=== PATIENT | female | born 1965 | race Caucasian/White ===

== ENCOUNTER 2017-07-08 20:51 | Emergency (ER) | payer OTHER ==
--- NOTE | 2017-07-08 21:05 | PDOC ---
History of Present Illness - History of Present Illness Initial Comments: 07/08/17 21:47 Patient is a 52 year old female with no significant past medical history who presents to the ED with complaints of left arm pain that began tonight at 8: 30pm. Patient reports walking her dog when she began feeling a sudden onset of left arm pain that began to radiate up to her left shoulder. She reports never experiencing anything similar to this pain. Patient described left arm pain to be localized to inner her arm and states her arm feels "heavy". She reports being home sick from work for last 2 days but is unsure if the two are related. Patient states she has been experiencing SOB but states it is due to her cold. Denies unusual physical activity. Denies chest pain. Denies fever, chills. Denies any other symptoms. Allergies: None Social history: Single mother with 2 teenage children. No smoking. No alcohol. No illicit drugs. Fam Hx; father heart attack age 42. Surgical history: None PMD: Dr. Arce Adult ROS General: No fevers or chills, no weakness, no weight loss HEENT: No change in vision. No sore throat, No ear pain CardioVascular: No chest pain or shortness of breath Respiratory:No cough, or wheezing. Gastrointestinal: no nausea, vomiting, diarrhea or constipation, No rectal bleeding Genitourinary: No dysuria, hematuria, or frequency Musculoskeletal: +Left arm pain. +Left shoulder pain. No joint or muscle swelling Neurologic: No headache, vertigo, dizziness or loss of consciousness Psychiatric: nor depression Skin: No rashes or easy bruising Endocrine: no increased thirst or abnormal weight change Allergic: no skin or latex allergy All other systems reviewed and normal Adult PE General: Well-nourished well-developed individual, no acute distress HEENT: Throat: Normal, tonsils normal, no erythema or exudate Neck: Supple, no meningeal signs, no lymphadenopathy Eyes::Pupils equal reactive and round, extraocular motion intact Chest: Nontender to palpation Cardiac: S1-S2 normal, regular rate and rhythm, no murmurs rubs or gallops Respiratory: Lungs clear to auscultation bilateral Extremities: Warm, dry, no cyanosis, clubbing, or edema Skin: No rashes Neuro: Alert and oriented x3, nonfocal exam, grossly intact, normal gait Psych: Normal mood and affect <Quirino Escamilla Last Filed: 07/08/17 21:48> - General History Source: Patient Exam Limitations: No Limitations - History of Present Illness Initial Comments: Medical decision making: This is a 52-year-old female who comes in complaining of left arm pain. Patient has virtually no risk factors for cardiac disease however she does have one risk factor which is a strong family history. Patient otherwise denies any hypertension, high cholesterol, smoking or diabetes. Will obtain EKG and cardiac labs. A portion of this note was documented by scribe services under my direction. I have reviewed the details of the note, within reason, and agree with the documentation. The case summary and management plan written by me. 07/08/17 22:12 Patient's heart scores 3 Assessment and plan: This is a 52-year-old female who comes in complaining of left arm pain primarily the out side of her arm radiating up into her shoulder. Patient said pain began post walking the dog. Patient denied any associated symptoms Patient's EKG just shows some nonspecific ST abnormalities Patient's troponin was negative Patient discharged and told to follow-up with her primary care doctor for further evaluation as she does have a strong family history of coronary artery disease. <Queta Pulido I - Last Filed: 07/08/17 22:29> - General Chief Complaint: Pain Stated Complaint: LT SHOULDER DISCOMFORT Time Seen by Provider: 07/08/17 20:55 Past History <Quirino Escamilla - Last Filed: 07/08/17 21:48> - Past Medical History Anemia: No Asthma: No Cancer: No Cardiac Disorders: No CVA: No COPD: No CHF: No Dementia: No Diabetes: No GI Disorders: Yes (CROHN'S COLITIS) Disorders: No HTN: No Hypercholesterolemia: No Liver Disease: No Seizures: No Thyroid Disease: No - Surgical History Abdominal Surgery: No Appendectomy: No Cardiac Surgery: No Cholecystectomy: No Lung Surgery: No Neurologic Surgery: No Orthopedic Surgery: Yes (BILATERAL HIP REPLACEMENTS 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 HIP DYSPLASIA) - Suicide/Smoking/Psychosocial Hx Smoking History: Never smoked Have you smoked in the past 12 months: No Number of Cigarettes Smoked Daily: 0 If you are a former smoker, when did you quit?: 1997 Hx Alcohol Use: Yes Drug/Substance Use Hx: No Substance Use Type: Alcohol Hx Substance Use Treatment: No <Queta Pulido I - Last Filed: 07/08/17 22:29> - Past Medical History Allergies/Adverse Reactions: Allergies Allergy/AdvReac Type Severity Reaction Status Date / Time No Known Drug Allergies Allergy Unverified 06/30/14 13:00 Home Medications: Ambulatory Orders NK [No Known Home Medication] 07/08/17 *Physical Exam - Vital Signs Last Vital Signs Temp Pulse Resp BP Pulse Ox 98.5 F 86 16 137/87 98 07/08/17 20:55 07/08/17 20:55 07/08/17 20:55 07/08/17 20:55 07/08/17 20:55 <Quirino Escamilla - Last Filed: 07/08/17 21:48> - Vital Signs Last Vital Signs Temp Pulse Resp BP Pulse Ox 98.5 F 86 16 137/87 98 07/08/17 20:55 07/08/17 20:55 07/08/17 20:55 07/08/17 20:55 07/08/17 20:55 <Queta Pulido I - Last Filed: 07/08/17 22:29> Heart Score/ECG Review - ECG Intrepretation Comment:: 07/08/17 21:33 Normal sinus Rhythm. Nonspecific ST abnormality Abnormal ECG <Quirino Escamilla - Last Filed: 07/08/17 21:48> - History History: Slightly suspicious - Electrocardiogram EKG: Non specific repolarization disturbance - Age Age: 45-65 - Risk Factors Risk Factors Heart Score: Yes Positive family hx of cardiac disease Based on the list above the patient has:: 1-2 risk factors - Troponin Troponin: </= normal limit - Score Heart Score - Total: 3 <Queta Pulido I - Last Filed: 07/08/17 22:29> *DC/Admit/Observation/Transfer - Attestations Scribe Attestion: 07/08/17 21:34 Documentation prepared by Quirino Escamilla, acting as medical insurance coder for Queta Pulido MD/DO. <Quirino Escamilla - Last Filed: 07/08/17 21:48> - Discharge Dispostion Admit: No <Queta Pulido I - Last Filed: 07/08/17 22:29> Diagnosis at time of Disposition: Left upper arm pain - Discharge Dispostion Disposition: HOME Condition at time of disposition: Stable - Referrals Referrals: Russell Arce MD [Primary Care Provider] - - Patient Instructions Additional Instructions: Return to the emergency department immediately with ANY new, persistent or worsening symptoms. Continue any medications as previously prescribed by your physician. You should follow up with your primary doctor as soon as possible regarding today's emergency department visit. When you see your primary care doctor asked for a referral to a tow truck driver for further evaluation and workup to furthur rule out coronary artery disease. . Please make sure your doctor reviews the results of your emergency evaluation. Thank you for coming to the Emergency Department today for your care. It was a pleasure to see you today. Please note that your evaluation is INCOMPLETE until you follow-up with your doctor. - Post Discharge Activity
[2017-07-08 21:07] VITALS: BP 137/87; PULSE 86; TEMP 98.5; BMI 30.4
[2017-07-08 22:00] LABS: CPK 107 IU/L (26-192)
[2017-07-08 22:19] LABS: TROPONIN I (DFP) < 0.03 ng/ml (0.03-0.50)
--- NOTE | 2017-07-10 08:30 | EKG ---
Test Reason : Blood Pressure : / mmHG Vent. Rate : 080 BPM Atrial Rate : 080 BPM P-R Int : 134 ms QRS Dur : 102 ms QT Int : 388 ms P-R-T Axes : 074 059 005 degrees QTc Int : 447 ms NORMAL SINUS RHYTHM NO PREVIOUS ECGS AVAILABLE Confirmed by SANJU LANZA MD ([id number]) on 07/10/2017 8:30:22 AM Referred By: MADISYN Confirmed By:SANJU LANZA MD
== END 2017-07-08 23:13 | disposition home or self-care (01) ==
LOC: FER 20:51
DX: M79.602 Pain in left arm (principal); K50.90 Crohn's disease, unspecified, without complications; Z96.643 Presence of artificial hip joint, bilateral; Z87.891 Personal history of nicotine dependence
CPT/HCPCS: 36415; 82550; 84484; 93005; 99282-25

== ENCOUNTER 2018-04-13 07:39 | Emergency (ER) | payer OTHER ==
--- NOTE | 2018-04-13 07:42 | PDOC ---
History of Present Illness - General Chief Complaint: Chest Pain Stated Complaint: SHORT OF BREAT LEFT CHEST WALL PAIN Time Seen by Provider: 04/13/18 07:41 - History of Present Illness Initial Comments: 04/13/18 09:51 53 is all no significant past medical history presents emergency Department with substernal chest pressure this morning. Patient had gone for a 45 minute walk there was no pain with exertion upon returning home while making coffee patient began to experience episode of substernal discomfort no radiation or diaphoresis no nausea no vomiting pain was worse with movement of her arm and it extinguished soon after. Recently over the past several months patient has experienced intermittent dyspnea not with exertion often at rest. She had a normal stress and stress thallium test within the last 3-4 years denies hypertension diabetes high cholesterol no tobacco positive family history. No travel no hemoptysis no leg swelling no active cancer no recent surgeries Past History - Past Medical History Allergies/Adverse Reactions: Allergies Allergy/AdvReac Type Severity Reaction Status Date / Time No Known Drug Allergies Allergy Verified 04/13/18 07:40 Home Medications: Ambulatory Orders NK [No Known Home Medication] 07/08/17 Anemia: No Asthma: No Cancer: No Cardiac Disorders: No CVA: No COPD: No CHF: No Dementia: No Diabetes: No GI Disorders: Yes (CROHN'S COLITIS) Disorders: No HTN: No Hypercholesterolemia: No Liver Disease: No Seizures: No Thyroid Disease: No - Surgical History Abdominal Surgery: No Appendectomy: No Cardiac Surgery: No Cholecystectomy: No Lung Surgery: No Neurologic Surgery: No Orthopedic Surgery: Yes (BILATERAL HIP REPLACEMENTS 2011 R/T HIP DYSPLASIA) - Suicide/Smoking/Psychosocial Hx Smoking History: Never smoked Have you smoked in the past 12 months: No Number of Cigarettes Smoked Daily: 0 If you are a former smoker, when did you quit?: 1997 Hx Alcohol Use: Yes Drug/Substance Use Hx: No Substance Use Type: Alcohol Hx Substance Use Treatment: No Review of Systems - Review of Systems Comments:: 04/13/18 08:12 ROS: A complete review of 10 out of 10 review of systems is taken and is negative apart from what is previously mentioned below and in the HPI. *Physical Exam - Physical Exam Comments: 04/13/18 09:49 Vitals: Triage Vital signs reviewed General Appearance: no acute distress, well nourished well developed, Head: Atraumatic, Eyes: Pupils equal reactive round, extraocular movement intact Ears: TM's normal bilaterally; Nose: Nares patent bilaterally;no nasal congestion Throat: Posterior oropharynx without erythema, mucous membranes moist, Neck: Supple;No Nucal rigidity Chest Wall: Nontender Cardiac: Regular rate and rhythym, no murmurs, no rubs, no gallops, Lungs: Clear to auscultation bilateral, good air movement bilaterally, Abdomen: Soft, non distended, normal bowel sounds, non tender to palpation Genitourinary: Rectal: Exam deferred Extremities: Full range of motion to all extremities, no cyanosis, clubbing, or edema Skin: Warm and dry, no rashes or lesions, no rash, no petechiae Neuro: AOX3; Cranial Nerves 2-12 grossly intact, Strength intact to all extremities, Sensation intact to all extremities,gait normal Psych: normal mood, normal affect Heart Score/ECG Review - History History: Slightly suspicious - Electrocardiogram EKG: Normal - Age Age: 45-65 - Risk Factors Risk Factors Heart Score: Yes Positive family hx of cardiac disease Based on the list above the patient has:: 1-2 risk factors - Troponin Troponin: </= normal limit - Score Heart Score - Total: 2 - ECG Impressions Comment:: 04/13/18 08:12 EKG performed at 8:05 AM demonstrates normal sinus rhythm 76 bpm. MI interval 132, QRS 90, QTC 425. No ST elevations no T-wave inversions no MI depressions no ST depressions. Normal axis. Interpreted by me. ED Treatment Course - LABORATORY CBC & Chemistry Diagram: 04/13/18 08:20 04/13/18 08:20 Medical Decision Making - Medical Decision Making 04/13/18 11:41 Heart score to atypical discomfort nonexertional no diaphoresis no nausea no vomiting no PE DVT risk factors low risk based on well's criteria Nonischemic EKG first troponin negative given that onset of symptoms was prior to arrival check second troponin and reassess. *DC/Admit/Observation/Transfer Diagnosis at time of Disposition: Atypical chest pain - Discharge Dispostion Disposition: HOME Condition at time of disposition: Stable Decision to Admit order: No - Referrals Referrals: Camilo Ramos MD [Staff Physician] - - Patient Instructions Printed Discharge Instructions: DI for Atypical Chest Pain Additional Instructions: Follow-up with Dr. Fader next week. Return to the emergency department for any severe worsening exertional symptoms or for any concerns. - Post Discharge Activity
[2018-04-13 08:08] VITALS: TEMP 98.1; BMI 36.0
[2018-04-13 08:36] LABS: EOS % 1.9 % (0-4.5); HEMATOCRIT 36.7 % (32.4-45.2); HEMOGLOBIN 12.3 GM/dl (10.7-15.3); LYMPH % 36.2 % (8-40); MCH 28.7 pg (25.7-33.7); MCHC 33.6 g/dl (32.0-36.0); MEAN CELL VOLUME 85.4 fl (80-96); MEAN PLT VOLUME 7.9 fl (7.5-11.1); MONO % 8.8 % (3.8-10.2); NEUT % 52.1 % (42.8-82.8); PLATELET COUNT 285 K/MM3 (134-434); RBC 4.29 M/mm3 (3.60-5.2); RDW 12.9 % (11.6-15.6); WHITE BLOOD COUNT 3.8 K/mm3 (4.0-10.8)
[2018-04-13 08:45] LABS: ALBUMIN 3.9 g/dl (3.5-5.0); ALK PHOS 70 U/L (32-92); ANION GAP 7 MMOL/L (8-16); BILIRUBIN,TOTAL 1.1 mg/dl (0.2-1.0); BLOOD UREA NITROGEN 20 mg/dl (7-18); CHLORIDE 104 mmol/L (98-107); CO2 25 mmol/L (22-28); CREATININE 0.7 mg/dl (0.6-1.3); GLUCOSE,RANDOM 99 mg/dl (74-106); SGOT/AST 31 U/L (10-42); SGPT/ALT 24 U/L (10-40); SODIUM 136 mmol/L (136-145); TOT PROT 7.1 g/dl (6.4-8.3)
--- NOTE | 2018-04-13 09:21 | EKG ---
Test Reason : Blood Pressure : / mmHG Vent. Rate : 076 BPM Atrial Rate : 076 BPM P-R Int : 132 ms QRS Dur : 090 ms QT Int : 378 ms P-R-T Axes : 055 043 021 degrees QTc Int : 425 ms NORMAL SINUS RHYTHM NORMAL ECG WHEN COMPARED WITH ECG OF 08-JUL-2017 21:13, NO SIGNIFICANT CHANGE WAS FOUND Confirmed by SHARON RICE MD ([id number]) on 04/13/2018 9:21:33 AM Referred By: Confirmed By:SHARON RICE MD
[2018-04-13 11:00] VITALS: BP 110/58; PULSE 65
== END 2018-04-13 11:50 | disposition home or self-care (01) ==
LOC: FER 07:39
DX: R07.89 Other chest pain (principal); Z96.643 Presence of artificial hip joint, bilateral
CPT/HCPCS: 36415; 71045-TC-FY; 80053; 84484; 85025; 93005; 99284-25

== ENCOUNTER 2019-07-29 19:03 | Emergency (ER) | payer OTHER ==
[2019-07-29 19:13] VITALS: BP 148/87; PULSE 82; TEMP 98; BMI 36.5
[2019-07-29] MEDS ORDERED: KETOROLAC TROMETHAMINE 60 MG/2 ML VIAL IM ONE (20:34)
[2019-07-29] MEDS ORDERED: KETOROLAC TROMETHAMINE 60 MG/2 ML VIAL ONE (20:50)
--- NOTE | 2019-07-29 22:43 | PDOC ---
Documentation entered by Myae Chang SCRIBE, acting as scribe for May Dominguez MD. May Dominguez MD: This documentation has been prepared by the Bernardo vsaquez Xhesika, SCRIBE, under my direction and personally reviewed by me in its entirety. I confirm that the documentation accurately reflects all work, treatment, procedures, and medical decision making performed by me. History of Present Illness - General Chief Complaint: Injury Stated Complaint: LEFT SHOULDER PAIN Time Seen by Provider: 07/29/19 19:21 History Source: Patient Exam Limitations: No Limitations - History of Present Illness Initial Comments: 07/29/19 19:59 The patient is a 54 year old female with no significant PMH of who presents to the emergency department for L shoulder pain s/p fall [employer]. The patient states she was putting her neighbors dog in the house, might've hit something with her foot and fell forward. The patient denies LOC or head injuries. Pt notes she had trouble getting up and had to roll over onto her R side. Patient denies taking any pain medications. Pt denies any lower extremity pain at rest or with ambulation. The patient denies chest pain, shortness of breath, headache and dizziness. Denies fever, chills, cough, nausea, vomiting, diarrhea and constipation. Denies dysuria, frequency, urgency and hematuria. Allergies: NKDA Past surgical history: b/l hip replacements Past History - Past Medical History Allergies/Adverse Reactions: Allergies Allergy/AdvReac Type Severity Reaction Status Date / Time No Known Drug Allergies Allergy Verified 07/29/19 19:05 Home Medications: Ambulatory Orders Diclofenac Sodium [Voltaren -] 75 mg PO BID PRN #20 tablet. 07/29/19 Anemia: No Asthma: No Cancer: No Cardiac Disorders: No CVA: No COPD: No CHF: No Dementia: No Diabetes: No GI Disorders: Yes (CROHN'S COLITIS) Disorders: No HTN: No Hypercholesterolemia: No Liver Disease: No Seizures: No Thyroid Disease: No - Surgical History Abdominal Surgery: No Appendectomy: No Cardiac Surgery: No Cholecystectomy: No Lung Surgery: No Neurologic Surgery: No Orthopedic Surgery: Yes (BILATERAL HIP REPLACEMENTS 2011 R/T HIP DYSPLASIA) - Psycho Social/Smoking Cessation Hx Smoking History: Never smoked Have you smoked in the past 12 months: No Number of Cigarettes Smoked Daily: 0 If you are a former smoker, when did you quit?: 1997 Information on smoking cessation initiated: No Hx Alcohol Use: No Drug/Substance Use Hx: No Substance Use Type: Alcohol Hx Substance Use Treatment: No Review of Systems - Review of Systems Able to Perform ROS?: Yes Comments:: 07/29/19 19:59 GENERAL/CONSTITUTIONAL: No fever or chills. No weakness. HEAD, EYES, EARS, NOSE AND THROAT: No change in vision. No ear pain or discharge. No sore throat. CARDIOVASCULAR: No chest pain or shortness of breath. RESPIRATORY: No cough, wheezing, or hemoptysis. GASTROINTESTINAL: No nausea, vomiting, diarrhea or constipation. GENITOURINARY: No dysuria, frequency, or change in urination. MUSCULOSKELETAL: + L shoulder pain. No joint or muscle swelling. No neck or back pain. SKIN: No rash NEUROLOGIC: No headache, vertigo, loss of consciousness, or change in strength/ sensation. ENDOCRINE: No increased thirst. No abnormal weight change. HEMATOLOGIC/LYMPHATIC: No anemia, easy bleeding, or history of blood clots. ALLERGIC/IMMUNOLOGIC: No hives or skin allergy. *Physical Exam - Vital Signs Last Vital Signs Temp Pulse Resp BP Pulse Ox 98 F 82 20 148/87 100 07/29/19 19:04 07/29/19 19:04 07/29/19 19:04 07/29/19 19:04 07/29/19 19:04 - Physical Exam 07/29/19 20:00 GENERAL: Awake, alert, and fully oriented, in no acute distress HEAD: No signs of trauma EYES: PERRLA, EOMI, sclera anicteric, conjunctiva clear ENT: Auricles normal inspection, hearing grossly normal, nares patent, oropharynx clear without exudates. Moist mucosa NECK: Normal ROM, supple, no lymphadenopathy, JVD, or masses LUNGS: Breath sounds equal, clear to auscultation bilaterally. No wheezes, and no crackles HEART: Regular rate and rhythm, normal S1 and S2, no murmurs, rubs or gallops ABDOMEN: Soft, nontender, normoactive bowel sounds. No guarding, no rebound. No masses EXTREMITIES: + mild tenderness of proximal left humerus just distal to the shoulder joint, no deformity noted. + pain with abduction of L arm greater than 20 degrees. no elbow or proximal forearm edema noted. + mild TTP of volar aspect of L wrist to thumb with ecchymosis, no deformity/edema noted. remainder of extremity exam normal. NEUROLOGICAL: Cranial nerves II through XII grossly intact. Normal speech, normal gait SKIN: Warm, Dry, normal turgor, no rashes or lesions noted. ED Treatment Course - RADIOLOGY Radiology Studies Ordered: Category Date Time Status SHOULDER-LEFT [RAD] Stat Radiology 07/29/19 19:56 Taken WRIST W/HAND-LEFT* [RAD] Stat Radiology 07/29/19 19:56 Taken ED Progress Note - Progress Note Progress Note: As noted above, this 54-year-old woman presents with history of left shoulder injury secondary to fall just prior to presentation: Patient describes bracing her fall with her left upper extremity and subsequent pain in the left shoulder area. She denies loss of consciousness or neck injury. No previous left upper extremity issues reported. Exam as noted with shoulder pain on minimal abduction of the left arm. There is faint ecchymosis mild edema noted on the palmar aspect of the volar aspect of the wrist and proximal palm. Left shoulder and left wrist/hand x-ray performed: Shoulder x-ray results discussed with Dr. Sterling of the radiology staffno evidence of fracture or dislocation seen. Preliminary interpretation of the left wrist/hand x-ray by me no evidence of fracture or dislocation. Results discussed with the patient and her daughter. Clinical presentation most consistent with left shoulder sprain. The patient has been advised to ice the left shoulder area over the next 24 hours, followed by local warmth to the area. Immobilization as needed for comfort (i.e. using a sling) can be used for the next 2 to 3 days. After that period of time, she should begin gentle mobilization as tolerated. The patient has been seen by Dr. Diamond of the orthopedic staff in the past. She should plan on following up with him within the next 3 to 4 days. Prescription sent to her pharmacy for diclofenac 75 mg up to twice a day as needed for pain, taken with food She should return to the ER if she has worsening pain, swelling or develops numbness/weakness of the arm Discharge - Discharge Information Problems reviewed: Yes Clinical Impression/Diagnosis: Sprain of left shoulder Qualifiers: Encounter type: initial encounter Shoulder sprain type: unspecified sprain Qualified Code(s): S43.402A - Unspecified sprain of left shoulder joint, initial encounter Contusion of left hand Qualifiers: Encounter type: initial encounter Qualified Code(s): S60.222A - Contusion of left hand, initial encounter Condition: Stable Disposition: HOME - Additional Discharge Information Prescriptions: Diclofenac Sodium [Voltaren -] 75 mg PO BID PRN #20 tablet.dr GOSS Reason: Pain - Follow up/Referral Referrals: Fabricio Diamond MD [Staff Physician] - - Patient Discharge Instructions Patient Printed Discharge Instructions: Shoulder Sprain Additional Instructions: Ice to left shoulder for 24 hours, then warmth to area as needed Sling on left arm during the day/off at night for the next 3 days Diclofenac 75 mg twice a day (take with food) as needed for pain Follow-up with Dr. Diamond within the next 5 days Return to ER if you have severe pain in shoulder or weakness/numbness in left arm - Post Discharge Activity
== END 2019-07-29 21:20 | disposition home or self-care (01) ==
LOC: FER 19:03
PROC: 3E0233Z Introduction of Anti-inflammatory into Muscle, Percutaneous Approach (ICD-10-PCS; principal; 2019-07-29)
DX: S43.402A Unspecified sprain of left shoulder joint, initial encounter (principal); S60.222A Contusion of left hand, initial encounter; Z96.643 Presence of artificial hip joint, bilateral; W01.0XXA Fall on same level from slipping, tripping and stumbling without subsequent striking against object, initial encounter; Y93.K1 Activity, walking an animal; Y92.89 Other specified places as the place of occurrence of the external cause
CPT/HCPCS: 73030-TC-LT-FY; 73110-TC-LT-FY; 73130-TC-LT-FY; 99282-25